=== PATIENT | male | born 1960 | race Caucasian/White ===

== ENCOUNTER 2024-05-15 00:20 | Emergency (ER) | payer OTHER ==
[2024-05-15] MEDS ORDERED: Sodium Chloride 0.9% 10 ML Syringe FLUSH PRN (00:40)
[2024-05-15 00:57] LABS: BASOPHILS ABSOLUTE AUTO 0.04 K/uL (0.00-0.20); BASOPHILS PERCENT AUTO 0.4 % (0.0-2.0); EOSINOPHILS ABSOLUTE AUTO 0.26 K/uL (0.00-0.50); EOSINOPHILS PERCENT AUTO 2.4 % (0.0-5.0); HEMATOCRIT 35.7 % (39.0-49.0); IMMATURE GRAN ABSOLUTE AUTO 0.06 10^3/uL (0.00-0.04); IMMATURE GRAN PERCENT AUTO 0.6 % (0.0-0.4); LYMPHOCYTES ABSOLUTE AUTO 0.78 K/uL (0.50-3.50); LYMPHOCYTES PERCENT AUTO 7.3 % (10.0-50.0); MEAN CORPUSCULAR HEMOGLOBIN 30.8 pg (28.2-33.3); MEAN CORPUSCULAR HGB CONC 33.6 g/dL (31.7-36.0); MEAN CORPUSCULAR VOLUME 91.5 fL (84.0-98.0); MONOCYTES PERCENT AUTO 10.4 % (2.0-14.0); NEUTROPHILS ABSOLUTE AUTO 8.38 K/uL (1.40-7.00); NEUTROPHILS PERCENT AUTO 78.9 % (45.0-80.0); PLATELET COUNT,PLT 424 K/uL (150-350); RED CELL DISTRIBUTION WIDTH 12.7 % (11.2-14.1); WHITE BLOOD CELL COUNT,WBC 10.6 K/uL (4.0-10.2)
[2024-05-15] MEDS: Iopamidol 612 MG/ML 100 ML Bottle IVPUSH STA (01:11)
[2024-05-15 01:18] LABS: ALANINE AMINOTRANSFERASE,ALT 17 U/L (12-78); ALKALINE PHOSPHATASE 70 IU/L (46-116); ANION GAP 9.2 meq/L (7-15); ASPARTATE AMNIOTRANSFERASE,AST 18 U/L (15-37); BILIRUBIN TOTAL 0.6 mg/dL (0.2-1.0); BLOOD UREA NITROGEN,BUN 20 mg/dL (7-18); C-REACTIVE PROTEIN 5.24 mg/dL (0.05-0.30); CALCIUM 8.4 mg/dL (8.5-10.1); CARBON DIOXIDE,CO2 26.8 mmol/L (21.0-32.0); CHLORIDE,CL 104 mmol/L (98-107); CREATININE 1.52 mg/dL (0.51-1.17); GLUCOSE RANDOM 109 mg/dL (70-99); LIPASE 53 U/L (16-77); POTASSIUM,K 3.9 mmol/L (3.5-5.1); PROTEIN TOTAL,TP 6.7 g/dL (6.4-8.2); SODIUM,NA 140 mmol/L (136-145)
[2024-05-15 01:19] LABS: ESTIMATED GFR 51 mL/min (>=60)
[2024-05-15 01:24] LABS: LACTIC ACID 0.5 mmol/L (0.4-2.0)
[2024-05-15 01:34] LABS: LEUKOCYTE ESTERASE,URINE NEGATIVE (NEGATIVE); OCCULT BLOOD,URINE LARGE (NEGATIVE)
[2024-05-15 01:35] LABS: COLOR,URINE ORANGE
[2024-05-15 01:36] LABS: RBC,URINE >100 /HPF; WBC,URINE 0-5 /HPF
[2024-05-15 01:37] LABS: APPEARANCE,URINE CLOUDY
[2024-05-15] MEDS: Simethicone 125 MG Tab.Chew PO PRN (02:27)
[2024-05-15 08:24] LABS: ALBUMIN 3.4 g/dL (3.4-5.0)
== END 2024-05-15 02:30 | disposition home or self-care (01) ==
LOC: LL.ED 00:20
DX: C61 Malignant neoplasm of prostate (principal); Z79.899 Other long term (current) drug therapy
CPT/HCPCS: 36415; 74177; 80053; 81001; 83605; 83690; 85025; 86140; 99284; A9270-GY; Q9967